=== PATIENT | female | born 1965 | race African-American/Black ===

== ENCOUNTER 2018-06-12 01:14 | Emergency (ER) | payer MEDICAID ==
[~2018-06-12] VITALS: Ht 180.3 cm; Wt 161.4 kg
[~2018-06-12 01:14] MED LIST: AMLO2.5T3 PO; ASPI-556 PO; DIAZ10 PO; DOCU-281 PO; FLUO-191 PO; FURO80 PO; HYDR-3971 PO; OMEP20 PO; QUET25TA PO; VALS160T2 PO
[2018-06-12] MEDS ORDERED: ALBU8HFA IH (01:30)
[2018-06-12] MEDS ORDERED: BACL20TA PO (01:30)
[2018-06-12] MEDS ORDERED: HYDR100C2 PO (01:30)
[2018-06-12] MEDS ORDERED: TRAZ-220 PO (01:30)
[2018-06-12] MEDS ORDERED: HYDR2TAB8 PO (01:30)
[2018-06-12] MEDS ORDERED: ONDA4TAB9 PO (01:30)
[2018-06-12] MEDS ORDERED: NALO25TA PO (01:30)
[2018-06-12] MEDS ORDERED: PANT40TA25 PO (01:30)
[2018-06-12] MEDS ORDERED: ASPI-1198 PO (01:30)
[2018-06-12] MEDS ORDERED: FUROSEMIDE 20 MG TABLET PO ONE (01:45)
[2018-06-12] MEDS ORDERED: ASPIRIN 81 MG CHEWABLE TABLET PO ONE (01:45)
[2018-06-12] MEDS ORDERED: HYDROCODONE/ACETAMINOPHEN 5-325 MG TABLET PO ONE (01:45)
[2018-06-12] MEDS ORDERED: OMEPRAZOLE 20 MG CAPSULE PO ONE (01:45)
[2018-06-12 02:11] VITALS: BP 132/90
[2018-06-12] MEDS ORDERED: DOCUSATE SODIUM 100 MG CAPSULE PO ONE (02:15)
[2018-06-12] MEDS ORDERED: TraZODone HCL 50 MG TABLET PO ONE (02:15)
== END 2018-06-12 02:33 | disposition home or self-care (01) ==
LOC: EMS 01:15
DX: G89.4 Chronic pain syndrome (principal); K29.70 Gastritis, unspecified, without bleeding; I11.0 Hypertensive heart disease with heart failure; I50.9 Heart failure, unspecified; G43.909 Migraine, unspecified, not intractable, without status migrainosus; F17.210 Nicotine dependence, cigarettes, uncomplicated; Z96.653 Presence of artificial knee joint, bilateral; Z79.82 Long term (current) use of aspirin; Z79.899 Other long term (current) drug therapy; Z79.891 Long term (current) use of opiate analgesic; Z88.8 Allergy status to other drugs, medicaments and biological substances

== ENCOUNTER 2018-06-12 15:24 | Emergency (ER) | payer MEDICAID ==
[~2018-06-12] VITALS: Ht 180.3 cm; Wt 161.4 kg
[~2018-06-12 15:24] MED LIST changes: +ALBU8HFA IH; +ASPI-1198 PO; +BACL20TA PO; +HYDR100C2 PO; +HYDR2TAB8 PO; +NALO25TA PO; +ONDA4TAB9 PO; +PANT40TA25 PO; +TRAZ-220 PO
[2018-06-12 16:34] LABS: BASOPHILS % (AUTO) 0.6 % (0.0-2.0); EOSINOPHILS % (AUTO) 2.2 % (1.0-6.0); HEMATOCRIT 35.5 % (36-46); LYMPHOCYTES # (AUTO) 1.9 K/uL (1.0-4.8); LYMPHOCYTES % (AUTO) 22.6 % (22.0-44.0); MEAN CORPUSCULAR HEMOGLOBIN 31.3 pg (26.0-34.0); MEAN CORPUSCULAR HGB CONC 33.8 G/dL (31.0-37.0); MEAN CORPUSCULAR VOLUME 93 fL (80-100); MONOCYTES # (AUTO) 0.6 K/uL (0.1-1.0); MONOCYTES % (AUTO) 7.2 % (2.0-9.0); NEUTROPHILS # (AUTO) 5.7 K/uL (1.8-7.7); NEUTROPHILS % (AUTO) 67.4 % (40.0-70.0); PLATELET COUNT (AUTO) 237 K/uL (150-450); RED BLOOD CELL COUNT(AUTO) 3.83 MIL/uL (4.00-5.20)
[2018-06-12 16:44] LABS: ANION GAP 5 mmol/L (8-16); CALCIUM, TOTAL 8.2 mg/dL (8.8-10.5); CARBON DIOXIDE 32 mmol/L (22-29); CHLORIDE 107 mmol/L (98-107); CREATININE 0.86 mg/dL (0.60-1.30); GLOMERULAR FILTR. RATE CALC > 60 mL/min (>60); GLUCOSE,RANDOM 107 mg/dL (70-110); SODIUM SERUM 144 mmol/L (136-145); UREA NITROGEN, BLOOD 8 mg/dL (7-18)
[2018-06-12 16:49] LABS: ALANINE AMINOTRANSFERASE 21 U/L (12-78); ALBUMIN 3.1 g/dL (3.4-5.0); ALKALINE PHOSPHATASE 99 U/L (46-116); ASPARTATE AMINOTRANSFERASE 22 U/L (15-37); BILIRUBIN,TOTAL 0.3 mg/dL (0.1-1.0); TOTAL PROTEIN, SERUM 7.2 g/dL (6.4-8.2)
== END 2018-06-12 20:27 | disposition left against medical advice (07) ==
LOC: EMS 15:25
DX: S13.4XXA Sprain of ligaments of cervical spine, initial encounter (principal); R55 Syncope and collapse; I11.0 Hypertensive heart disease with heart failure; I50.9 Heart failure, unspecified; G43.909 Migraine, unspecified, not intractable, without status migrainosus; F17.210 Nicotine dependence, cigarettes, uncomplicated; Z88.8 Allergy status to other drugs, medicaments and biological substances; Z79.899 Other long term (current) drug therapy; W18.39XA Other fall on same level, initial encounter; Y93.89 Activity, other specified; Y92.89 Other specified places as the place of occurrence of the external cause; Y99.8 Other external cause status
CPT/HCPCS: 99406